=== PATIENT | female | born 1975 | race Caucasian/White ===

== ENCOUNTER 2016-12-25 23:13 | Emergency (ER) | payer OTHER ==
[2016-12-25 23:39] VITALS: BP 119/83; PULSE 94; TEMP 97.9; BMI 39.3
--- NOTE | 2016-12-26 00:14 | PDOC ---
History of Present Illness - General History Source: Patient Exam Limitations: No Limitations - History of Present Illness Initial Comments: 12/26/16 01:21 The patient is a 41 year old female, with a significant past medical history of cardiomyopathy (patient delivered 06/09/2016), who presents to the emergency department with worsening shortness of breath on exertion since yesterday. The patient reports that even standing from the seated position or walking a short distance makes her short of breath. She additionally reports associated diaphoresis when she experiences these episodes of shortness of breath. The patient denies chest pain or any lower extremity edema. The patient denies fever, chills, cough or any cold/flu-like symptoms. The patient denies nausea, vomiting or abdominal pain. LMP: One month ago. Allergies: None reported. Past Surgical History: Cholecystectomy. Family History: Heart disease (mother, ). Social History: Non smoker. Denies alcohol or drug use. PCP: In [place]. <Keri Sandoval - Last Filed: 12/26/16 01:21> - General History Source: Patient, Old Records Exam Limitations: No Limitations <Mary Lou Richards - Last Filed: 12/26/16 01:23> <Selina Calderon - Last Filed: 12/26/16 07:20> - General Chief Complaint: Shortness of Breath Stated Complaint: SOB/CHEST PRESSURE Time Seen by Provider: 12/26/16 00:13 Past History <Keri Sandoval - Last Filed: 12/26/16 01:21> - Past Medical History Psychiatric Problems: Yes (DEPRESSION/ANXIETY) - Surgical History Cholecystectomy: Yes - Reproductive History (#): 2 Para: 1 Cervical CA: No Dysfunctional Uterine Bleeding: No Ectopic : No Endometrial CA: No Polycystic Ovaries: No Tubal Ligation: No - Immunization History Immunization Up to Date: Yes - Psycho/Social/Smoking Cessation Hx Anxiety: Yes Suicidal Ideation: No Smoking History: Never smoked Have you smoked in the past 12 months: No Hx Alcohol Use: No Drug/Substance Use Hx: No Substance Use Type: None <Mary Lou Richards - Last Filed: 12/26/16 01:23> <Selina Calderon - Last Filed: 12/26/16 07:20> - Past Medical History Allergies/Adverse Reactions: Allergies Allergy/AdvReac Type Severity Reaction Status Date / Time No Known Allergies Allergy Verified 12/25/16 23:19 Home Medications: Ambulatory Orders Albuterol Sulfate Inhaler - [Ventolin Hfa Inhaler -] 1 - 2 inh PO Q4H PRN Alprazolam [Xanax] 1 mg PO DAILY PRN 12/25/16 Aspirin [Curt Chewable] 81 mg PO DAILY 12/25/16 Cyclobenzaprine HCl 10 mg PO HS PRN 12/25/16 Fluoxetine HCl [Prozac -] 40 mg PO DAILY 12/25/16 Furosemide [Lasix -] 40 mg PO ONCE 12/25/16 Lisinopril [Prinivil] 10 mg PO DAILY 12/25/16 Metoprolol Tartrate [Lopressor -] 25 mg PO BID 12/25/16 Review of Systems - Review of Systems Able to Perform ROS?: Yes Comments:: 12/26/16 01:20 GENERAL/CONSTITUTIONAL: No fever or chills. No weakness. HEAD, EYES, EARS, NOSE AND THROAT: No change in vision. No ear pain or discharge. No sore throat. CARDIOVASCULAR: +Shortness of breath on exertion, diaphoresis. No chest pain. RESPIRATORY: No cough, wheezing, or hemoptysis. GASTROINTESTINAL: No nausea, vomiting, diarrhea or constipation. GENITOURINARY: No dysuria, frequency, or change in urination. MUSCULOSKELETAL: No joint or muscle swelling or pain. No neck or back pain. SKIN: No rash. NEUROLOGIC: No headache, vertigo, loss of consciousness, or change in strength/ sensation. ENDOCRINE: No increased thirst. No abnormal weight change. HEMATOLOGIC/LYMPHATIC: No anemia, easy bleeding, or history of blood clots. ALLERGIC/IMMUNOLOGIC: No hives or skin allergy. <Keri Sandoval - Last Filed: 12/26/16 01:21> *Physical Exam - Vital Signs Last Vital Signs Temp Pulse Resp BP Pulse Ox 97.9 F 94 H 20 119/83 97 12/25/16 23:37 12/25/16 23:37 12/25/16 23:37 12/25/16 23:37 12/25/16 23:37 - Physical Exam Comments: 12/26/16 01:20 GENERAL: Awake, alert, and fully oriented, in no acute distress. HEAD: No signs of trauma. EYES: PERRLA, EOMI, sclera anicteric, conjunctiva clear. ENT: Auricles normal inspection, hearing grossly normal, nares patent, oropharynx clear without exudates. Moist mucosa. NECK: Normal ROM, supple, no lymphadenopathy, JVD, or masses. LUNGS: Breath sounds equal, clear to auscultation bilaterally. No wheezes, and no crackles. HEART: Regular rate and rhythm, normal S1 and S2, no murmurs, rubs or gallops. ABDOMEN: Soft, nontender, normoactive bowel sounds. No guarding, no rebound. No masses. EXTREMITIES: Normal range of motion, no edema. No clubbing or cyanosis. No cords , erythema, or tenderness. NEUROLOGICAL: Cranial nerves II through XII grossly intact. Normal speech, normal gait. SKIN: Warm, dry, normal turgor, no rashes or lesions noted. <Keri Sandoval - Last Filed: 12/26/16 01:21> - Vital Signs Last Vital Signs Temp Pulse Resp BP Pulse Ox 97.9 F 94 H 20 119/83 97 12/25/16 23:37 12/25/16 23:37 12/25/16 23:37 12/25/16 23:37 12/25/16 23:37 <Mray Lou Richards - Last Filed: 12/26/16 01:23> - Vital Signs Last Vital Signs Temp Pulse Resp BP Pulse Ox 97.9 F 94 H 20 119/83 97 12/25/16 23:37 12/25/16 23:37 12/25/16 23:37 12/25/16 23:37 12/25/16 23:37 <Selina Calderon - Last Filed: 12/26/16 07:20> ED Treatment Course - LABORATORY CBC & Chemistry Diagram: 12/26/16 01:14 12/26/16 01:14 - ADDITIONAL ORDERS Additional order review: Laboratory Results 12/26/16 12/26/16 12/26/16 01:25 01:14 01:14 D-Dimer 202 Sodium 140 Potassium 4.0 Chloride 105 Carbon Dioxide 26 Anion Gap 9 BUN 14 D Creatinine 0.9 D Creat Clearance w eGFR > 60 Random Glucose 100 Calcium 9.1 Total Bilirubin 0.5 D AST 17 D ALT 29 D Alkaline Phosphatase 96 D Creatine Kinase 63 Troponin I < 0.02 B-Natriuretic Peptide 14.78 Total Protein 7.9 Albumin 3.7 Urine Color Ltyellow Urine Appearance Clear Urine pH 5.0 Ur Specific [place] 1.021 Urine Protein Negative Urine Glucose (UA) Negative Urine Ketones Negative Urine Blood Negative Urine Nitrite Negative Urine Bilirubin Negative Urine Urobilinogen Negative Ur Leukocyte Esterase Negative Urine HCG, Qual Negative 12/26/16 02:00 Influenza Types A,B Antigen (ASHLY) - Final Nasopharyngeal Swab - Final 12/26/16 01:14 RBC 4.92 MCV 84.1 MCHC 32.9 RDW 14.3 MPV 8.7 Neutrophils % 64.3 Lymphocytes % 26.6 Monocytes % 7.0 Eosinophils % 1.2 Basophils % 0.9 <Selina Calderon - Last Filed: 12/26/16 07:20> Medical Decision Making - Medical Decision Making 12/26/16 01:23 41-year-old female with history of hypertension, cardiomyopathy, preeclampsia with her last in June 2016 who presents to the emergency department with 2 day history of dyspnea on exertion associated with some chest pressure. The patient is saturating well and is comfortable at rest. Differential diagnosis includes but is not limited to: CHF, PE, URI, asthma, pneumothorax, anemia, electrolyte abnormality, toxic/metabolic derangement. Plan: 1. EKG 2. Labs 3. Urine analysis and urine 4. Observe and reevaluate <Mary Lou Richards - Last Filed: 12/26/16 01:23> - Medical Decision Making 12/26/16 07:15 Pt awaiting a 2nd cardiac enzyme. If normal, she will be discharged home. <Selina Calderon - Last Filed: 12/26/16 07:20> *DC/Admit/Observation/Transfer - Attestations Scribe Attestion: 12/26/16 00:15 Documentation prepared by Keri Sandoval, acting as medical doctor md/medical director for Mary Lou Richards MD. <Keri Sandoval - Last Filed: 12/26/16 01:21> - Attestations Physician Attestion: 12/26/16 01:25 I, Dr. Mary Lou Richards, attest that the scribes documentation that appears above has been prepared under my direction and personally reviewed by me in its entirety. I confirmed that the note above accurately reflects all work, treatment, procedures, and medical decision-making performed by me. <Mary Lou Richards - Last Filed: 12/26/16 01:23> - Discharge Dispostion Admit: No <Selina Calderon - Last Filed: 12/26/16 07:20> Diagnosis at time of Disposition: Shortness of breath, Atypical chest pain - Discharge Dispostion Disposition: HOME Condition at time of disposition: Stable - Referrals Referrals: STAFF,NOT ON [Primary Care Provider] - - Patient Instructions Printed Discharge Instructions: DI for Shortness of Breath
[2016-12-26 01:26] LABS: BASOPHIL 0.9 % (0-2.0); EOSINOPHIL 1.2 % (0-4.5); MCH 27.7 pg (25.7-33.7); MCHC 32.9 g/dl (32.0-36.0); MEAN CELL VOLUME 84.1 fl (80-96); MEAN PLT VOLUME 8.7 fl (7.5-11.1); NEUTROPHILS 64.3 % (42.8-82.8); PLATELET COUNT 290 K/MM3 (134-434); RDW 14.3 % (11.6-15.6)
[2016-12-26 01:43] LABS: URINE APPEARANCE CLEAR; URINE BILIRUBIN NEGATIVE (NEGATIVE); URINE BLOOD NEGATIVE (NEGATIVE); URINE COLOR LTYELLOW; URINE GLUCOSE (UA) NEGATIVE (NEGATIVE); URINE KETONE NEGATIVE (NEGATIVE); URINE LEUK ESTERASE NEGATIVE (NEGATIVE); URINE NITRITE NEGATIVE (NEGATIVE); URINE PROTEIN NEGATIVE (NEGATIVE); URINE UROBILINOGEN NEGATIVE E.U./dl (0.2-1.0)
[2016-12-26 01:49] LABS: ALBUMIN 3.7 g/dl (3.4-5.0); BILIRUBIN,TOTAL 0.5 mg/dL (0.2-1.0); CALCIUM 9.1 mg/dL (8.5-10.1); CO2 26 mmol/L (21-32); CREATININE 0.9 mg/dL (0.55-1.02); GLUCOSE,RANDOM 100 mg/dL (74-106); SGOT/AST 17 U/L (15-37); SGPT/ALT 29 U/L (12-78); TOT PROT 7.9 g/dl (6.4-8.2)
[2016-12-26 01:51] LABS: ALK PHOS 96 U/L (45-117); TROPONIN I < 0.02 ng/ml (0.00-0.05)
[2016-12-26 02:18] LABS: ANION GAP 9 (8-16)
[2016-12-26 06:43] LABS: TROPONIN I < 0.02 ng/ml (0.00-0.05)
--- NOTE | 2016-12-27 00:42 | EKG ---
Test Reason : Blood Pressure : / mmHG Vent. Rate : 079 BPM Atrial Rate : 079 BPM P-R Int : 154 ms QRS Dur : 096 ms QT Int : 388 ms P-R-T Axes : 034 -04 -05 degrees QTc Int : 444 ms NORMAL SINUS RHYTHM RSR' OR QR PATTERN IN V1 SUGGESTS RIGHT VENTRICULAR CONDUCTION DELAY MINIMAL VOLTAGE CRITERIA FOR LVH, MAY BE NORMAL VARIANT NONSPECIFIC T WAVE ABNORMALITY ABNORMAL ECG WHEN COMPARED WITH ECG OF 24-SEP-2003 02:06, RSR PATTERN IS SEEN T WAVE INVERSION NOW EVIDENT IN ANTERIOR LEADS Confirmed by SHAKEEL OQUENDO MD ([id number]) on 12/27/2016 12:42:49 AM Referred By: Confirmed By:SHAKEEL OQUENDO MD
== END 2016-12-26 07:47 | disposition home or self-care (01) ==
LOC: JER 23:13
DX: R07.89 Other chest pain (principal)
CPT/HCPCS: 36415; 71010-TC; 80053; 81003; 82550; 83880; 84484; 84703; 85025; 85379; 87804; 93005; 93010; 99281-25

== ENCOUNTER 2017-08-25 22:30 | Emergency (ER) | payer OTHER ==
[2017-08-25 22:49] VITALS: BP 133/82; PULSE 85; TEMP 99; BMI 37.5
--- NOTE | 2017-08-25 23:18 | PDOC ---
History of Present Illness - History of Present Illness Initial Comments: 08/25/17 23:45 The patient is a 41 year old female, with a significant past medical history of CHF (Dx 1 year ago, lasix as needed), hypertension (taking metoprolol and lisinopril), and depression (reportedly takes Xanax and Prozac as needed), who presents to the emergency department with orthopnea, exertional dyspnea and midsternal chest pain for one week with 3 days of bilateral ankle swelling. The patient reports noticing a chest pressure to her midsternal region with associated left shoulder and neck tightness. The patient reports feeling short of breath when lying flat which she states has woken her up about 3x a night since the onset of her symptoms a week ago. She also states she feels short of breath from taking right now. She denies pleuritic chest pain. She reports noticing some swelling to her bilateral ankles about 3 days ago and reportedly started taking her lasix daily since with resolution of her swelling today. Secondarily, the patient reports starting oral contraception earlier this month. She denies headache and dizziness. She denies fever, chills, vomit, diarrhea and constipation. She denies dysuria, frequency, urgency and hematuria. Allergies: NKDA Past surgical history: cholecystectomy Social history: Pt denies toxic habits <Ronna Shanks - Last Filed: 08/26/17 04:13> - General History Source: Patient <Jose Hargrove - Last Filed: 08/26/17 04:44> - General Chief Complaint: Chest Pain Stated Complaint: CHEST PAIN Time Seen by Provider: 08/25/17 23:18 Past History <Ronna Shanks - Last Filed: 08/26/17 04:13> - Past Medical History Psychiatric Problems: Yes (DEPRESSION/ANXIETY) - Surgical History Cholecystectomy: Yes - Reproductive History (#): 2 Para: 1 Cervical CA: No Dysfunctional Uterine Bleeding: No Ectopic : No Endometrial CA: No Polycystic Ovaries: No Tubal Ligation: No - Immunization History Immunization Up to Date: Yes - Suicide/Smoking/Psychosocial Hx Smoking History: Never smoked Have you smoked in the past 12 months: No Hx Alcohol Use: No Drug/Substance Use Hx: No Substance Use Type: None <Jose Hargrove - Last Filed: 08/26/17 04:44> - Past Medical History Allergies/Adverse Reactions: Allergies Allergy/AdvReac Type Severity Reaction Status Date / Time No Known Allergies Allergy Verified 12/25/16 23:19 Home Medications: Ambulatory Orders Albuterol Sulfate Inhaler - [Ventolin Hfa Inhaler -] 1 - 2 inh PO Q4H PRN Alprazolam [Xanax] 1 mg PO DAILY PRN 12/25/16 Aspirin [Curt Chewable] 81 mg PO DAILY 12/25/16 Cyclobenzaprine HCl 10 mg PO HS PRN 12/25/16 Fluoxetine HCl [Prozac -] 40 mg PO DAILY 12/25/16 Furosemide [Lasix -] 40 mg PO DAILY 12/25/16 Lisinopril [Prinivil] 10 mg PO DAILY 12/25/16 Metoprolol Tartrate [Lopressor -] 25 mg PO BID 12/25/16 Ibuprofen 800 mg PO TID #30 tablet 08/26/17 Review of Systems - Review of Systems Able to Perform ROS?: Yes Comments:: 08/25/17 23:46 CONSTITUTIONAL: Absent: fever, chills, diaphoresis, generalized weakness, malaise, loss of appetite HEENT: Absent: rhinorrhea, nasal congestion, throat pain, throat swelling, difficulty swallowing, mouth swelling, ear pain, eye pain, visual Changes CARDIOVASCULAR: (+) chest pain, Absent: syncope, palpitations, irregular heart rate, lightheadedness, peripheral edema RESPIRATORY: (+) shortness of breath, dyspnea with exertion, orthopnea, Absent: cough, wheezing, stridor, hemoptysis GASTROINTESTINAL: Absent: abdominal pain, abdominal distension, nausea, vomiting, diarrhea, constipation, melena, hematochezia GENITOURINARY: Absent: dysuria, frequency, urgency, hesitancy, hematuria, flank pain, genital pain MUSCULOSKELETAL: (+) left shoulder and neck pain. Absent: joint swelling SKIN: Absent: rash, itching, pallor HEMATOLOGIC/IMMUNOLOGIC: Absent: easy bleeding, easy bruising, lymphadenopathy, frequent infections ENDOCRINE: Absent: unexplained weight gain, unexplained weight loss, heat intolerance, cold intolerance NEUROLOGIC: Absent: headache, focal weakness or paresthesias, dizziness, unsteady gait, seizure, mental status changes, bladder or bowel incontinence PSYCHIATRIC: Absent: anxiety, depression, suicidal or homicidal ideation, hallucinations. <Morenzi,Ronna - Last Filed: 08/26/17 04:13> *Physical Exam - Vital Signs Last Vital Signs Temp Pulse Resp BP Pulse Ox 99 F 85 18 133/82 98 08/25/17 22:47 08/25/17 22:47 08/25/17 22:47 08/25/17 22:47 08/25/17 22:47 - Physical Exam Comments: 08/25/17 23:47 GENERAL: Well developed, well nourished. Awake and alert. No acute distress. HEENT: Normocephalic, atraumatic. PERRLA, EOMI. No conjunctival pallor. Sclera are non- icteric. Moist mucous membranes. Oropharynx is clear. NECK: Supple. Full ROM. No JVD. Carotid pulses 2+ and symmetric, without bruits. No thyromegaly. No lymphadenopathy. CARDIOVASCULAR: Regular rate and rhythm. No murmurs, rubs, or gallops. Distal pulses are 2+ and symmetric. PULMONARY: No evidence of respiratory distress. Lungs clear to auscultation bilaterally. No wheezing, rales or rhonchi. ABDOMINAL: Soft. Non-tender. Non-distended. No rebound or guarding. No organomegaly. Normoactive bowel sounds. MUSCULOSKELETAL Normal range of motion at all joints. No bony deformities or tenderness. No CVA tenderness. EXTREMITIES: No cyanosis. No clubbing. No edema. No calf tenderness. SKIN: Warm and dry. Normal capillary refill. No rashes. No jaundice. NEUROLOGICAL: Alert, awake, appropriate. Cranial nerves 2-12 intact. Normoreflexic in the upper and lower extremities. Normal speech. Toes are down-going bilaterally. Gait is normal without ataxia. PSYCHIATRIC: Cooperative. Good eye contact. Appropriate mood and affect. <Ronna Shanks - Last Filed: 08/26/17 04:13> - Vital Signs Last Vital Signs Temp Pulse Resp BP Pulse Ox 99 F 85 18 133/82 98 08/25/17 22:47 08/25/17 22:47 08/25/17 22:47 08/25/17 22:47 08/25/17 22:47 <Jose Hargrove - Last Filed: 08/26/17 04:44> ED Treatment Course - LABORATORY CBC & Chemistry Diagram: 08/26/17 00:04 08/26/17 00:04 - RADIOLOGY Radiograph Interpretation: DATE OF SERVICE: 2017-08-26 02:54:55 IMAGES: 594 EXAM: CTA CHEST No pulmonary embolism. No aortic dissection or aneurysm. No pneumonia or pleural effusions. Cholecystectomy. 08/26/2017 04:12 EST Mariajose Mejia MD <Ronna Shanks - Last Filed: 08/26/17 04:13> - LABORATORY CBC & Chemistry Diagram: 08/26/17 00:04 08/26/17 00:04 <Jose Hargrove - Last Filed: 08/26/17 04:44> Medical Decision Making - Medical Decision Making 08/26/17 04:30 Dr. Hargrove: The scribe's documentation has been prepared under my direction and personally reviewed by me in its entirery. I confirm that the note above accurately reflects all work, treatment, procedures, and medical decision making performed by me. Labs, except D-dimer are negative. Chest CTA is negative. Pt advised to follow up with her doctors when she gets home. Pt given referrals if she remains in the area <Jose Hargrove - Last Filed: 08/26/17 04:44> *DC/Admit/Observation/Transfer - Attestations Scribe Attestion: 08/25/17 23:47 Documentation prepared by Ronna Shanks, acting as medical laboratory specialist for Jose Hargrove DO <Ronna Shanks - Last Filed: 08/26/17 04:13> - Discharge Dispostion Admit: No <Jose Hragrove - Last Filed: 08/26/17 04:44> Diagnosis at time of Disposition: Shortness of breath Chest pain Qualifiers: Chest pain type: unspecified Qualified Code(s): R07.9 - Chest pain, unspecified - Discharge Dispostion Disposition: HOME Condition at time of disposition: Stable - Referrals Referrals: STAFF,NOT ON [Primary Care Provider] - Dar Ortiz MD [Staff Physician] - Johnathan Bernard MD [Staff Physician] - - Patient Instructions Printed Discharge Instructions: DI for Chest Pain
[2017-08-26 00:20] LABS: BASOPHIL 0.7 % (0-2.0); EOSINOPHIL 0.6 % (0-4.5); MCH 27.9 pg (25.7-33.7); MEAN CELL VOLUME 84.6 fl (80-96); MEAN PLT VOLUME 9.2 fl (7.5-11.1); NEUTROPHILS 66.6 % (42.8-82.8); PLATELET COUNT 322 K/MM3 (134-434); RDW 14.3 % (11.6-15.6); WHITE BLOOD COUNT 12.1 K/mm3 (4.0-10.0)
[2017-08-26 00:45] LABS: ALBUMIN 3.5 g/dl (3.4-5.0); ANION GAP 10 (8-16); BILIRUBIN,TOTAL 0.3 mg/dL (0.2-1.0); CALCIUM 8.7 mg/dL (8.5-10.1); CO2 27 mmol/L (21-32); CREATININE 0.8 mg/dL (0.55-1.02); GLUCOSE,RANDOM 125 mg/dL (74-106); SGPT/ALT 18 U/L (12-78); TOT PROT 7.7 g/dl (6.4-8.2)
[2017-08-26 00:48] LABS: ALK PHOS 92 U/L (45-117); CPK 71 IU/L (26-192); TROPONIN I < 0.02 ng/ml (0.00-0.05)
[2017-08-26 00:53] LABS: SGOT/AST 12 U/L (15-37)
[2017-08-26 01:38] LABS: URINE APPEARANCE CLOUDY; URINE BILIRUBIN NEGATIVE (NEGATIVE); URINE BLOOD 3+ (NEGATIVE); URINE COLOR YELLOW; URINE GLUCOSE (UA) NEGATIVE (NEGATIVE); URINE KETONE NEGATIVE (NEGATIVE); URINE NITRITE NEGATIVE (NEGATIVE); URINE PROTEIN NEGATIVE (NEGATIVE); URINE UROBILINOGEN NEGATIVE mg/dL (0.2-1.0)
[2017-08-26 02:12] LABS: URINE MUCUS RARE; URINE RBC 418 /hpf (0-3)
[2017-08-26] MEDS ORDERED: ALPRAZolam 0.25 MG TABLET PO ONE (02:33)
[2017-08-26] MEDS ORDERED: ALPRAZolam 0.25 MG TABLET ONE (02:41)
[2017-08-26 08:59] LABS: URINE LEUK ESTERASE Negative (NEGATIVE)
[2017-08-26 09:33] LABS: URINE WBC 10 /hpf (3-5)
--- NOTE | 2017-08-27 13:16 | EKG ---
Test Reason : Blood Pressure : / mmHG Vent. Rate : 086 BPM Atrial Rate : 086 BPM P-R Int : 156 ms QRS Dur : 098 ms QT Int : 380 ms P-R-T Axes : 043 -03 002 degrees QTc Int : 454 ms NORMAL SINUS RHYTHM INCOMPLETE RIGHT BUNDLE BRANCH BLOCK MINIMAL VOLTAGE CRITERIA FOR LVH, MAY BE NORMAL VARIANT BORDERLINE ECG WHEN COMPARED WITH ECG OF 25-DEC-2016 23:25, NO SIGNIFICANT CHANGE WAS FOUND Confirmed by SWAPNIL HUERTA MD ([id number]) on 08/27/2017 1:15:27 PM Referred By: Confirmed By:SWAPNIL HUERTA MD
== END 2017-08-26 04:53 | disposition home or self-care (01) ==
LOC: JER 22:30
DX: R07.89 Other chest pain (principal); I10 Essential (primary) hypertension; I50.9 Heart failure, unspecified; F32.9 Major depressive disorder, single episode, unspecified
CPT/HCPCS: 36415; 71275-TC; 80053; 81003; 81015; 82550; 84484; 84703; 85025; 85379; 93005; 93010; 99283-25

== ENCOUNTER 2018-03-31 21:47 | Emergency (ER) | payer OTHER ==
[2018-03-31 21:52] VITALS: TEMP 98.4; BMI 41.1
--- NOTE | 2018-04-01 00:25 | PDOC ---
History of Present Illness <Loki Angel - Last Filed: 04/01/18 02:50> <Stefani Woodard - Last Filed: 04/01/18 05:00> - General Chief Complaint: Chest Pain Stated Complaint: CHEST PRESSURE,PAIN LEFT ARM Time Seen by Provider: 03/31/18 23:00 Past History - Past Medical History COPD: No Psychiatric Problems: Yes (DEPRESSION/ANXIETY) Other medical history: HEART FAILURE - Surgical History Cholecystectomy: Yes - Reproductive History (#): 2 Para: 1 Cervical CA: No Dysfunctional Uterine Bleeding: No Ectopic : No Endometrial CA: No Polycystic Ovaries: No Tubal Ligation: No - Immunization History Immunization Up to Date: Yes - Suicide/Smoking/Psychosocial Hx Smoking History: Never smoked Have you smoked in the past 12 months: No Hx Alcohol Use: No Drug/Substance Use Hx: No Substance Use Type: None <Loki Angel - Last Filed: 04/01/18 02:50> <Stefani Woodard - Last Filed: 04/01/18 05:00> - Past Medical History Allergies/Adverse Reactions: Allergies Allergy/AdvReac Type Severity Reaction Status Date / Time No Known Allergies Allergy Verified 03/31/18 21:52 Home Medications: Ambulatory Orders Albuterol Sulfate Inhaler - [Ventolin Hfa Inhaler -] 1 - 2 inh PO Q4H PRN Alprazolam [Xanax] 1 mg PO DAILY PRN 12/25/16 Aspirin [Curt Chewable] 81 mg PO DAILY 12/25/16 Cyclobenzaprine HCl 10 mg PO HS PRN 12/25/16 Fluoxetine HCl [Prozac -] 40 mg PO DAILY 12/25/16 Lisinopril [Prinivil] 10 mg PO DAILY 12/25/16 Ibuprofen 800 mg PO TID PRN 03/31/18 Metoprolol Succinate [Toprol Xl -] 25 mg PO DAILY 03/31/18 *Physical Exam - Vital Signs Last Vital Signs Temp Pulse Resp BP Pulse Ox 98.4 F 75 20 134/87 98 03/31/18 21:49 03/31/18 21:49 03/31/18 21:49 03/31/18 21:49 03/31/18 21:49 <Loki Angel - Last Filed: 04/01/18 02:50> - Vital Signs Last Vital Signs Temp Pulse Resp BP Pulse Ox 98.4 F 75 20 134/87 98 03/31/18 21:49 03/31/18 21:49 03/31/18 21:49 03/31/18 21:49 03/31/18 21:49 <NatimosesStefani Adams - Last Filed: 04/01/18 05:00> Heart Score/ECG Review - History History: Slightly suspicious - Electrocardiogram EKG: Non specific repolarization disturbance - Age Age: </= 45 - Risk Factors Risk Factors Heart Score: Yes Hx Hypertension, Yes Positive family hx of cardiac disease Based on the list above the patient has:: >/=3 risk factors or Hx atherosclerotic disease - Troponin Troponin: </= normal limit - Score Heart Score - Total: 3 #1 04/01/18 00:29 Twelve-lead EKG was performed and reviewed by me. Normal sinus rhythm, rate 70 to. Normal axis and intervals. No ST elevations. T wave inversions in leads 3, aVF, V2-V4. No significant change when compared to EKG from August 2017 other than resolution of incomplete right bundle branch block. <Loki Angel - Last Filed: 04/01/18 02:50> ED Treatment Course - LABORATORY CBC & Chemistry Diagram: 04/01/18 00:40 04/01/18 00:40 <Loki Angel - Last Filed: 04/01/18 02:50> - LABORATORY CBC & Chemistry Diagram: 04/01/18 00:40 04/01/18 00:40 - ADDITIONAL ORDERS Additional order review: Laboratory Results 04/01/18 04/01/18 04/01/18 03:44 00:40 00:24 Sodium 141 Potassium 3.7 Chloride 107 Carbon Dioxide 22 Anion Gap 12 BUN 9 Creatinine 0.8 Creat Clearance w eGFR > 60 Random Glucose 88 Calcium 8.7 Magnesium 2.1 Total Bilirubin 0.5 D AST 20 ALT 28 Alkaline Phosphatase 98 Creatine Kinase 131 Troponin I < 0.02 < 0.02 B-Natriuretic Peptide 156.02 H Total Protein 7.3 Albumin 3.7 Urine HCG, Qual 04/01/18 00:24 Sodium Potassium Chloride Carbon Dioxide Anion Gap BUN Creatinine Creat Clearance w eGFR Random Glucose Calcium Magnesium Total Bilirubin AST ALT Alkaline Phosphatase Creatine Kinase Troponin I B-Natriuretic Peptide Total Protein Albumin Urine HCG, Qual Negative 04/01/18 00:40 RBC 4.58 MCV 82.8 MCHC 33.0 RDW 14.7 MPV 8.8 Neutrophils % 63.9 Lymphocytes % 28.9 Monocytes % 6.1 Eosinophils % 0.5 Basophils % 0.6 - Medications Given in the ED: ED Medications Discontinued Medications Generic Name Dose Route Start Last Admin Trade Name Francisco PRN Reason Stop Dose Admin Alprazolam 1 mg 04/01/18 02:49 04/01/18 02:58 Xanax - PO 04/01/18 02:50 1 mg ONCE ONE Administration Ketorolac Tromethamine 15 mg 04/01/18 02:49 04/01/18 02:58 Toradol Injection - IVPUSH 04/01/18 02:50 15 mg ONCE ONE Administration <Stefani Woodard - Last Filed: 04/01/18 05:00> Medical Decision Making - Medical Decision Making 04/01/18 00:26 42-year-old female with a history of cardiomyopathy, hypertension, depression, ADHD presents the emergency department with resolved CP and L neck pain that shoots down her L arm. Vitals unremarkable. Exam with L trap ttp, and reproducibility of shooting pain down her L arm by turning her head to the left. EKG with T-wave inversions in leads 3, aVF, V2-V4 that are unchanged compared to EKG from August 2017. Pt states she has had CP daily for >1 year that has been worked up for cardiac pathology and states the pain she complains of today is no different. She became concerned when she developed the pain to her L neck as she though this could be from her heart and this prompted her to come in today. Pain to the L neck likely MSK given reproducibility with exam. Unclear etiology of CP, but pt states it only lasts for seconds at a time and she has had it for >1 year. Given her PMH, will check 2 troponins. In the mean time, will treak MSK pain and reassess. Patient does not meet any perc criteria and thus unlikely pulmonary embolism. Plan: -labs -UPT -CXR -dispo 04/01/18 02:50 First set of labs negative, pt is pending xanax/toradol to treat presumed MSK pain, rpt trop, and reassessment. <Loki Angel - Last Filed: 04/01/18 02:50> *DC/Admit/Observation/Transfer <Loki Angel - Last Filed: 04/01/18 02:50> <Stefani Woodard - Last Filed: 04/01/18 05:00> - Discharge Dispostion Disposition: HOME Condition at time of disposition: Stable - Referrals Referrals: ON STAFF,NOT [Primary Care Provider] - - Patient Instructions Additional Instructions: take ibuprofen for pain. - Post Discharge Activity
[2018-04-01 00:50] LABS: BASO % 0.6 % (0-2.0); EOS % 0.5 % (0-4.5); HEMATOCRIT 37.9 % (32.4-45.2); HEMOGLOBIN 12.5 GM/dL (10.7-15.3); LYMPH % 28.9 % (8-40); MCH 27.3 pg (25.7-33.7); MEAN CELL VOLUME 82.8 fl (80-96); MEAN PLT VOLUME 8.8 fl (7.5-11.1); MONO % 6.1 % (3.8-10.2); NEUT % 63.9 % (42.8-82.8); PLATELET COUNT 292 K/MM3 (134-434); RBC 4.58 M/mm3 (3.60-5.2); RDW 14.7 % (11.6-15.6); WHITE BLOOD COUNT 10.6 K/mm3 (4.0-10.0)
[2018-04-01 01:15] LABS: ALBUMIN 3.7 g/dl (3.4-5.0); ANION GAP 12 (8-16); BILIRUBIN,TOTAL 0.5 mg/dL (0.2-1.0); BLOOD UREA NITROGEN 9 mg/dL (7-18); CALCIUM 8.7 mg/dL (8.5-10.1); CHLORIDE 107 mmol/L (98-107); CO2 22 mmol/L (21-32); CREATININE 0.8 mg/dL (0.55-1.02); GLUCOSE,RANDOM 88 mg/dL (74-106); MAGNESIUM 2.1 mg/dL (1.8-2.4); POTASSIUM 3.7 mmol/L (3.5-5.1); SGOT/AST 20 U/L (15-37); SGPT/ALT 28 U/L (12-78); SODIUM 141 mmol/L (136-145); TOT PROT 7.3 g/dl (6.4-8.2)
[2018-04-01 01:18] LABS: ALK PHOS 98 U/L (45-117)
[2018-04-01] MEDS ORDERED: ALPRAZolam 2 MG TABLET PO ONE (02:49)
[2018-04-01] MEDS ORDERED: KETOROLAC TROMETHAMINE 15 MG/ML VIAL IVPUSH ONE (02:49)
[2018-04-01] MEDS ORDERED: ALPRAZolam 2 MG TABLET ONE (02:52)
[2018-04-01] MEDS ORDERED: KETOROLAC TROMETHAMINE 15 MG/ML VIAL ONE (02:53)
[2018-04-01 05:13] VITALS: BP 122/92; PULSE 63
--- NOTE | 2018-04-01 08:51 | EKG ---
Test Reason : Blood Pressure : / mmHG Vent. Rate : 072 BPM Atrial Rate : 072 BPM P-R Int : 154 ms QRS Dur : 096 ms QT Int : 414 ms P-R-T Axes : 041 -07 -03 degrees QTc Int : 453 ms NORMAL SINUS RHYTHM NONSPECIFIC T WAVE ABNORMALITY ABNORMAL ECG WHEN COMPARED WITH ECG OF 25-AUG-2017 22:49, INCOMPLETE RIGHT BUNDLE BRANCH BLOCK IS NO LONGER PRESENT Confirmed by BRUCE SINGER, KATHLEEN ([id number]) on 04/01/2018 8:50:33 AM Referred By: Confirmed By:KATHLEEN BARRERA MD
== END 2018-04-01 05:13 | disposition home or self-care (01) ==
LOC: JER 21:47
PROC: 3E0333Z Introduction of Anti-inflammatory into Peripheral Vein, Percutaneous Approach (ICD-10-PCS; principal; 2018-03-31)
DX: R07.89 Other chest pain (principal); I10 Essential (primary) hypertension; I50.9 Heart failure, unspecified; F41.8 Other specified anxiety disorders; O90.3 Peripartum cardiomyopathy
CPT/HCPCS: 36415; 71046-TC-FY; 80053; 82550; 83735; 83880; 84484; 84703; 85025; 93005; 93010; 96374; 99283-25